=== PATIENT | female | born 1990 | race Caucasian/White ===

== ENCOUNTER 2016-09-02 13:47 | Emergency (ER) | payer OTHER | END 2016-09-02 14:33 | disposition home or self-care (01) | LOC: SED 13:47 | DX: S40.861A Insect bite (nonvenomous) of right upper arm, initial encounter (principal); S40.862A Insect bite (nonvenomous) of left upper arm, initial encounter; J45.909 Unspecified asthma, uncomplicated; F32.9 Major depressive disorder, single episode, unspecified; Z90.49 Acquired absence of other specified parts of digestive tract; W57.XXXA Bitten or stung by nonvenomous insect and other nonvenomous arthropods, initial encounter; Y92.9 Unspecified place or not applicable | CPT/HCPCS: 99282 ==